=== PATIENT | female | born 1990 | race American Indian/Alaskan Native ===

== ENCOUNTER 2017-09-13 14:18 | Emergency (ER) | payer OTHER ==
[2017-09-13 14:47] VITALS: BP 138/79
[2017-09-13 15:17] LABS: Bilirubin,Urine NEG (Negative); Blood,Urine MOD (Negative); Color,Urine Yellow (Yellow); Mucus,Urine 1+ /HPF; Protein,Urine <15 mg/dL mg/dL (Negative); Urobilinogen,Urine < 2.0 mg/dL (<2.0)
[2017-09-13 15:18] LABS: HCG Qualitative,Urine Positive (Negative)
--- NOTE | 2017-09-13 16:56 | Emergency Department Report ---
ED Female HPI - General Chief complaint: Urogenital-Female Stated complaint: SPOTTING/ Time Seen by Provider: 09/13/17 16:42 Source: patient Mode of arrival: Ambulatory Limitations: No Limitations - History of Present Illness Initial comments: Arminda Ortega is a very pleasant 27-year-old who had a recent positive test. She's had vaginal spotting intermittently for the last day. She first had vaginal spotting on September 01. Last normal period mid July. She denies cramping. She denies pain. She's had mild nausea. She also has had breast tenderness. This is patient's first . MD Complaint: vaginal bleeding -: Gradual Severity: mild Severity scale (0 -10): 0 Are you Now?: Yes - Related Data Previous Rx's Medication Instructions Recorded Last Taken Type Ibuprofen [Motrin] 600 mg PO Q8H PRN #21 tablet 04/17/13 Unknown Rx Allergies Allergy/AdvReac Type Severity Reaction Status Date / Time No Known Allergies Allergy Unverified 04/17/13 08:01 ED Review of Systems ROS: Stated complaint: SPOTTING/ Other details as noted in HPI Comment: All other systems reviewed and negative Constitutional: denies: chills, fever, malaise Respiratory: denies: cough Cardiovascular: denies: chest pain ED Past Medical Hx - Past Medical History Previous Medical History?: No - Surgical History Past Surgical History?: No - Social History Smoking Status: Current Some Day Smoker - Medications Home Medications: Home Medications Medication Instructions Recorded Confirmed Last Taken Type Ibuprofen [Motrin] 600 mg PO Q8H PRN #21 tablet 04/17/13 Unknown Rx ED Physical Exam - General Limitations: No Limitations General appearance: alert, in no apparent distress - Head Head exam: Present: atraumatic, normocephalic - Eye Eye exam: Present: normal appearance - ENT ENT exam: Present: mucous membranes moist - Neck Neck exam: Present: normal inspection - Respiratory Respiratory exam: Present: normal lung sounds bilaterally. Absent: respiratory distress, wheezes, rales, rhonchi - Cardiovascular Cardiovascular Exam: Present: regular rate, normal rhythm, normal heart sounds. Absent: systolic murmur, diastolic murmur, rubs, gallop - GI/Abdominal GI/Abdominal exam: Present: soft, normal bowel sounds. Absent: distended, tenderness, guarding, rebound - External exam: Present: other (deferred) Speculum exam: Present: other (deferred) Bi-manual exam: Present: other (deferred) - Extremities Exam Extremities exam: Present: normal inspection - Back Exam Back exam: Present: normal inspection - Neurological Exam Neurological exam: Present: alert, oriented X3 - Psychiatric Psychiatric exam: Present: normal affect, normal mood - Skin Skin exam: Present: warm, dry, intact, normal color. Absent: rash ED Course Vital Signs 09/13/17 14:42 Temperature 98.6 F Pulse Rate 84 Respiratory 20 Rate Blood Pressure 138/79 O2 Sat by Pulse 100 Oximetry ED Medical Decision Making - Lab Data Result diagrams: 09/13/17 17:10 - Medical Decision Making With ultrasound findings of gestational sac without pole, differential diagnosis includes missed , threatened miscarriage versus ectopic with pseudogestational sac I recommended follow-up INTERMISSION COORDINATOR. She has first appointment scheduled within the next week Ms. Ortega understand ectopic precautions: pain, bleeding Critical care attestation.: If time is entered above; I have spent that time in minutes in the direct care of this critically ill patient, excluding procedure time. ED Disposition Clinical Impression: Threatened miscarriage Disposition: DC-01 TO HOME OR SELFCARE Is pt being admited?: No Does the pt Need Aspirin: No Condition: Stable Instructions: Threatened Miscarriage (ED) Additional Instructions: Your HCG level is 32,000. Please return to ER immediately if you developed pain or any other new symptoms. Forms: Work/School Release Form(ED) Time of Disposition: 19:28
[2017-09-13 17:27] LABS: Basophils # (Auto) 0.1 K/mm3 (0.0-0.1); Eosinophils # (Auto) 0.1 K/mm3 (0.0-0.4); Hematocrit 35.1 % (30.3-42.9); Hemoglobin 11.5 gm/dl (10.1-14.3); Lymphocytes # (Auto) 2.2 K/mm3 (1.2-5.4); Lymphocytes % (Auto) 36.4 % (13.4-35.0); Mean Corpuscular HGB Conc 33 % (30-34); Mean Corpuscular Hemoglobin 28 pg (28-32); Mean Corpuscular Volume 84 fl (79-97); Monocytes # (Auto) 0.7 K/mm3 (0.0-0.8); Monocytes % (Auto) 10.9 % (0.0-7.3); Platelet Count 395 K/mm3 (140-440); Red Blood Count 4.18 M/mm3 (3.65-5.03); Red Cell Distribution Width 15.1 % (13.2-15.2)
--- NOTE | 2017-09-13 19:24 | Ultrasound Report ---
FINAL REPORT EXAM: US OB < = 14 WEEKS FETUS HISTORY: threatened miscarriage vaginal spotting . LMP 08/04/2017 with estimated age 5 weeks 5 days and EDC 05/11/2018. Serum beta HCG quantitation 36,074 corresponding to estimated age 6-7 weeks gestation TECHNIQUE: Ultrasound of the pelvis using transabdominal and transvaginal imaging PRIORS: None. FINDINGS: Uterus: Uterus is enlarged in size and normal and homogeneous in echogenicity. The uterus measures 11.0 x 9.9 x 6.3 cm in size. There is a large hypoechoic heterogeneous fibroid within the anterior aspect of the uterine fundus measuring 5.9 x 5.6 x 6.8 cm. There is a single early intrauterine gestation noted. Intrauterine gestation: There is a single intrauterine gestation identified in the fundus with a visualized yolk sac. No pole is clearly noted. By gestational sac average diameter measurement of 2.2 cm corresponds to estimated age 7 weeks 1 days with EDC 05/01/2018. Ovaries: Both ovaries appear normal in echogenicity with normal blood flow bilaterally. The left ovary appears enlarged. The right ovary measures 2.7 x 1.6 x 1.6 cm and the left ovary measures 4.9 x 2.6 x 2.0 cm in size. The left ovary contains a complex homogeneous hypoechoic avascular 2.4 cm focus. This probably represents a hemorrhagic corpus luteum with partial surrounding blood flow. In the right adnexa, there is a 2.2 x 2.0 x 1.9 cm homogeneous hypoechoic rounded focus identified on the transabdominal exam but not visualized on transvaginal imaging. The echogenicity and appearance suggests a probable pedunculated fibroid rather than ovarian mass. However, continuity between this focus and the uterine fundus cannot be confirmed. Other: There is no evidence for solid adnexal mass is seen. There is no free fluid in the cul-de-sac. IMPRESSION: 1. single intrauterine gestational sac noted in the fundus with an approximate age of 7 weeks 1 days. No definite pole is seen but a yolk sac is identified. The lack of visualized pole is abnormal for this gestational age. Follow-up ultrasound in 1 week may be helpful to confirm the presence of a pole. 2. Large fibroid extending off the anterior aspect of the uterine fundus. 3. Rounded focus in the right adnexa with echogenicity and ultrasound appearance suggesting a pedunculated fibroid. Right ovarian mass is not entirely excluded. 4. Likely a hemorrhagic corpus luteum in the left ovary.
== END 2017-09-13 19:40 | disposition home or self-care (01) ==
LOC: ED 14:18
DX: O20.0 Threatened abortion (principal); O99.331 Smoking (tobacco) complicating pregnancy, first trimester; F17.200 Nicotine dependence, unspecified, uncomplicated; O26.891 Other specified pregnancy related conditions, first trimester; N64.4 Mastodynia; Z3A.01 Less than 8 weeks gestation of pregnancy
CPT/HCPCS: 36415; 76801; 76817; 81001; 81025; 84702; 85025; 86900; 86901; 99284